=== PATIENT | male | born 1940 | race Caucasian/White ===

== ENCOUNTER 2017-05-28 08:43 | Emergency (ER) | payer MEDICARE, OTHER ==
[2017-05-28] MEDS ORDERED: Cordarone 150 MG/3 ML Injection IV ONE (08:50)
[2017-05-28] MEDS ORDERED: NEXTERONE 360 MG/200 ML BAG 360 MG/200 ML PLAST..BAG IV SCH (09:00)
[2017-05-28] MEDS ORDERED: Sodium Chloride 0.9% 1000 ML 1,000 ML IV SCH (09:00)
[2017-05-28] MEDS ORDERED: Cordarone 150 MG/3 ML Injection ONE (09:01)
[2017-05-28] MEDS ORDERED: Sodium Chloride 0.9% 1000 ML 1,000 ML ONE (09:01)
[2017-05-28] MEDS ORDERED: NEXTERONE 360 MG/200 ML BAG 360 MG/200 ML PLAST..BAG IV ONE (09:03)
[2017-05-28] MEDS ORDERED: TENORMIN 50 MG ONE (09:04)
[2017-05-28] MEDS ORDERED: TENORMIN 50 MG PO ONE (09:04)
[2017-05-28 09:05] LABS: BASOPHIL % 0.4 % (0.0-0.4); Eosinophil % 1.4 % (0.00-5.0); Granulocytes % 57.8 % (36.0-66.0); Lymphocytes % 29.3 % (24.0-44.0); Mean Cell Volume 84.9 fl (78-100); Mean Corpuscular Hemoglobin 27.4 pg (26-32); Mean Platelet Volume 10.4 fl (6-9.5); Monocytes % 11.1 % (0.0-12.0); Platelet Count 185 K/mm3 (150-450); Red Blood Count 4.96 M/mm3 (4.1-5.6); Red Cell Distribution Width 14.6 % (11.5-14.0); White Blood Count 9.3 K/mm3 (4.0-10.5)
[2017-05-28] MEDS ORDERED: D5w 100ML Mini Bag 100 ML 100 ML IV ONE (09:08)
[2017-05-28 09:23] LABS: INR 1.09 (0.8-3.0); PROTIME 12.1 SECONDS (8.83-12.87)
--- NOTE | 2017-05-28 09:32 | XRAY ---
Indication: Dyspnea. Comparison: None Portable chest demonstrates clear lungs. Heart is not enlarged. Vascularity normal. Bony thorax intact with sternotomy wires. Impression: Nonacute chest.
[2017-05-28 09:38] LABS: ALKALINE PHOSPHATASE 76 U/L (46-116); ANION GAP 15.8 MEQ/L (5-15); BLOOD UREA NITROGEN 14 mg/dL (9-20); CHLORIDE 102 mEq/L (98-107); Carbon Dioxide 25.6 mEq/L (21-32); Glucose 95 MG/DL (70-110); SGOT/AST 21 U/L (15-37); SGPT/ALT 27 U/L (12-78); SODIUM 139 mEq/L (136-145); Total Protein 6.7 gm/dL (6.4-8.2)
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
[2017-05-28 10:45] VITALS: BP 122/82; PULSE 52
[2017-05-28 11:52] VITALS: O2SAT 99
== END 2017-05-28 11:45 | disposition short-term general hospital (02) ==
LOC: ED 08:43
DX: I49.9 Cardiac arrhythmia, unspecified (principal); I47.2 Ventricular tachycardia; Z95.2 Presence of prosthetic heart valve; Z79.899 Other long term (current) drug therapy; E78.00 Pure hypercholesterolemia, unspecified; I10 Essential (primary) hypertension
CPT/HCPCS: 36000; 36415; 71010; 80053; 83735; 83880; 84484; 85025; 85610; 93005; 93041; 96360; 96361; 96365; 96366; 96374; 99285; J0282; A9270-GY